=== PATIENT | female | born 1995 | race African-American/Black ===

== ENCOUNTER 2018-10-02 08:06 | Emergency (ER) | payer OTHER ==
[~2018-10-02] VITALS: Ht 167.6 cm; Wt 31.4 kg
[2018-10-02 08:07] VITALS: BP 117/82
[2018-10-02] MEDS ORDERED: AUGM875T28 PO (09:37)
== END 2018-10-02 09:43 | disposition home or self-care (01) ==
LOC: M ED 08:06
DX: S61.052A Open bite of left thumb without damage to nail, initial encounter (principal); W54.0XXA Bitten by dog, initial encounter; Y92.099 Unspecified place in other non-institutional residence as the place of occurrence of the external cause; Y93.89 Activity, other specified; Y99.9 Unspecified external cause status; Z72.0 Tobacco use